=== PATIENT | female | born 1970 | race Two or more races ===

== ENCOUNTER 2016-07-21 18:14 | Emergency (ER) | payer OTHER ==
[~2016-07-21] VITALS: Ht 149.9 cm; Wt 78.9 kg
[2016-07-21 20:12] VITALS: BP 144/91
[2016-07-21] MEDS ORDERED: KETOROLAC TROMETH 60MG/2ML VIAL IM ONE (21:00)
== END 2016-07-21 21:26 | disposition home or self-care (01) ==
LOC: ER 18:27
DX: S46.912A Strain of unspecified muscle, fascia and tendon at shoulder and upper arm level, left arm, initial encounter (principal); G89.29 Other chronic pain; M54.5 Low back pain; X50.9XXA Other and unspecified overexertion or strenuous movements or postures, initial encounter; Y93.89 Activity, other specified; Y99.8 Other external cause status; Y92.512 Supermarket, store or market as the place of occurrence of the external cause; Z90.710 Acquired absence of both cervix and uterus
CPT/HCPCS: 96372; 99283; J1885